=== PATIENT | female | born 1985 | race Caucasian/White ===

== ENCOUNTER 2016-10-18 20:20 | Emergency (ER) | payer SELFPAY ==
[~2016-10-18] VITALS: Wt 54.2 kg
[2016-10-18] MEDS ORDERED: KETOROLAC 15 MG INJ IM STA (21:15)
[2016-10-18] MEDS ORDERED: ONDANSETRON (ODT) 4 MG TAB ODT STA (21:15)
[2016-10-18 22:15] LABS: ADD UMIC NO; URINE BILIRUBIN (Dip) NEGATIVE (NEGATIVE); URINE BLOOD (Dip) NEGATIVE (NEGATIVE); URINE COLOR LT. YELLOW (YELLOW); URINE GLUCOSE (Dip) NEGATIVE (NEGATIVE); URINE KETONES (Dip) NEGATIVE (NEGATIVE); URINE LEUKOCYTE ESTERASE (Dip) NEGATIVE (NEGATIVE); URINE NITRITE (Dip) NEGATIVE (NEGATIVE); URINE TOTAL PROTEIN (Dip) NEGATIVE (NEGATIVE); URINE UROBILINOGEN (Dip) 0.2 E.U./dL (0.1-1.0)
--- NOTE | 2016-10-18 22:21 | RADRPT ---
PROCEDURE: US Pelvis CLINICAL INDICATION: Pelvic pain. TECHNIQUE: Sonographic evaluation of the pelvis was performed utilizing both transabdominal and tr ansvaginal technique. Curved array transabdominal transducer technique as well as a high frequency endovaginal probe was utilized. Images were reviewed on the high-resolution PACS workstation. COMPARISON: No prior studies are available for comparison. FINDINGS: The uterus is normal in size, echogenicity, and morphology, measuring 7.5 x 4.2 x 5.2 cm. The uterus is anteverted in normal position. The endometrium measures 10 mm in thickness. The normal trilaminar stripe of the endometrium is preserved. The right ovary measures 2.0 x 1.8 x 1.6 cm. The left ovary measures 3.9 x 2.1 x 2.5 cm. The ovaries are symmetric in size, echogenicity, and morphology. Bilateral ovarian follicles are noted, measuring up to 1.6 cm. There are no adnexal masses. There is no significant free fluid in the pelvis. IMPRESSION: 1. Unremarkable ultrasound of the pelvis. RPTAT: HLDM .Joanh Jasso MD, Date Time Electronically viewed and signed by .Jonah Jasso MD, MD on 10/18/2016 22:21 .M/
[2016-10-18] MEDS ORDERED: KETOROLAC 15 MG INJ IV STA (23:56)
[2016-10-19] MEDS ORDERED: PANTOPRAZOLE 40 MG INJ IV ONE
[2016-10-19] MEDS ORDERED: SOD CHLORIDE 0.9% 500 ML IV ONE
--- NOTE | 2016-10-19 02:00 | ERD ---
ER Documentation Chief Complaint Date/Time DATE: 10/19/16 TIME: 01:48 Chief Complaint RIGHT SIDE AP FOR THE PAST FEW DAYS. NAUSEA NO VOMITING. NO DYSURIA HPI This pleasant 30-year-old female reporting right abdominal pain intermittently for a few days. Patient reports that symptoms have worsened today, states that she feels hungry but vomits after eating. Denies diarrhea, history of ovarian cyst on right side. Patient reports symptoms feel similar. Last menstrual period 2 months ago, patient reports irregular menstruation, denies fever, chills, vaginal discharge, denies diarrhea, constipation. Last bowel movement was this morning. ROS All systems reviewed and are negative except as per history of present illness. Allergies Allergies: Uncoded Allergies: SULFA (Allergy, Unknown, 10/19/16) PMhx/Soc History of Surgery: Yes (OVARIAN CYSTECTOMY) Anesthesia Reaction: No Hx Neurological Disorder: No Hx Respiratory Disorders: No Hx Cardiac Disorders: No Hx Psychiatric Problems: No Hx Miscellaneous Medical Probl: No Hx Alcohol Use: No Hx Substance Use: No Hx Tobacco Use: No (QUIT) Smoking Status: Former smoker Physical Exam Vitals Vital Signs Date Time Temp Pulse Resp B/P Pulse Ox O2 Delivery O2 Flow Rate FiO2 10/18/16 20:25 98.3 81 20 142/78 99 Vitals stable, triage notes were reviewed Physical Exam Const: No acute distress Head: Atraumatic Eyes: Normal Conjunctiva, PERRLA, EOMI ENT: Normal External Ears, Nose and Mouth. Mucous membranes moist Neck: Resp: Chest rises and falls symmetrically, clear to auscultation bilaterally, no respiratory distress Cardio: Abd: Abdomen soft, tympanic to percussion, tender to palpation left upper and lower quadrant., No McBurney's point tenderness. No CVA tenderness no Dobson sign Skin: Back: No midline or flank tenderness Ext: Neur: Awake and alert Psych: Normal Mood and Affect Results 24 hrs Laboratory Tests Test 10/18/16 21:30 Urine Color LT. YELLOW Urine Clarity CLEAR Urine pH 6.0 Urine Specific [place] 1.010 Urine Ketones NEGATIVE Urine Nitrite NEGATIVE Urine Bilirubin NEGATIVE Urine Urobilinogen 0.2 E.U./dL Urine Leukocyte Esterase NEGATIVE Urine Hemoglobin NEGATIVE Urine Glucose NEGATIVE% Urine Total Protein NEGATIVE Current Medications Medications (Trade) Dose Ordered Sig/Zahra Route PRN Reason Start Time Stop Time Status Last Admin Dose Admin Ketorolac Tromethamine (Toradol) 15 mg ONCE STAT IM 10/18/16 21:15 10/18/16 21:19 DC 10/18/16 21:25 Ondansetron HCl 4 mg 4 mg ONCE STAT ODT 10/18/16 21:15 10/18/16 21:19 DC 10/18/16 21:25 Sodium Chloride (NS) 500 ml @ 500 mls/hr Q1H ONCE IV 10/19/16 00:00 10/19/16 00:59 DC 10/19/16 00:29 Ketorolac Tromethamine (Toradol) 15 mg ONCE STAT IV 10/18/16 23:56 10/19/16 00:26 DC 10/19/16 00:29 Pantoprazole (Protonix Iv) 40 mg ONCE ONCE IV 10/19/16 00:00 10/19/16 00:26 DC 10/19/16 00:29 Procedures/MDM This pleasant 30-year-old female presents to the emergency department today with right-sided abdominal pain. Pain has been present for several days but worsened today. Patient has been unable to tolerate food without vomiting, states she feels hungry, denies diarrhea, patient has history of ovarian cyst reports symptoms feel similar. Patient's last menstrual period was 2 months ago. Patient has irregular menses duration, denies . Differential diagnosis includes but not limited to appendicitis, pancreatitis, bowel obstruction, cholecystitis, ovarian cysts. Pelvic ultrasound impression unremarkable ultrasound of the pelvis, the right ovary measures 2.0 x 1.8 x 1.6 cm left ovary measures 3.9 x 2.1 x 2.5 cm. The ovaries are symmetric in size echogenic and morphology. Bilateral ovarian follicles are noted measuring up to 1.6 cm there are no adnexal masses there is no significant free fluid in pelvis. Patient receives 15 mg of Toradol intramuscularly, 4 mg of Zofran sublingual reassessed after 30 minutes with no change in symptoms. Patient given 500 mg of IV fluid, 15 mg of IV Toradol and 40 mg IV Protonix. Reassessed after 90 minutes reports improvement of symptoms, feels more hydrated , patient will be discharged home with Zantac 150 mg twice daily as needed, and Zofran, patient instructed to adhere to clear liquid diet advance as tolerated, return to emergency room for worsening of symptoms, and unable to tolerate fluids, fever, worsening of nausea not responding to medication. I feel the patient is stable for discharge at this time and outpatient management by primary care physician. I have discussed results, examination findings, the treatment plan with the patient and family present prior to discharge. Indications for emergent reevaluation, side effects of medication were also discussed. All questions were answered. Patient verbalizes understanding and agrees with plan of care. Departure Diagnosis: Primary Impression: Abdominal pain Abdominal location: right upper quadrant Qualified Code: R10.11 - Right upper quadrant abdominal pain Condition: Good Patient Instructions: Abdominal Pain Additional Instructions: Thank you for for coming to [facility] for your care today. Please ask your nurse or provider if you have questions about your care today and do not leave until all your questions have been answered. Please use any medications given as directed and follow-up with your doctor (or the doctor you were referred to) in the next 2-3 days. If you do not have a primary care doctor you may follow up [place] the [facility] [place] (listed [place]). You may also use motrin and tylenol as needed for fever and/or pain unless instructed otherwise by your provider or nurse. Indications for more urgent follow-up have been discussed, but you may return to the Emergency Department at ANY time for any worrisome or worsening symptoms. If you have abdominal pain, please know that no test or exam you received is perfect and you should follow up within 8 hours for continued pain. If you had any imaging studies today, such as an X-Ray or CT Scan, these studies will be reviewed later by a radiologist. You will be called if there are important findings that were not identified today, so make sure the contact information you provided at registration is correct. If you received any narcotic pain control medicine today, such as Vicodin, Morphine or Dilaudid, your coordination and judgment may be affected for a number of hours. Please do not drive or operate heavy machinery, and you may want someone to assist you at home. If you were given a prescription for narcotic medication, be aware that it is very addictive- use sparingly and only if necessary. VIET ORTIZ October 19, 2016 02:00
[2016-10-19] MEDS ORDERED: RANI150T9 PO (02:01)
[2016-10-19] MEDS ORDERED: ONDA4TAB14 PO (02:01)
[2016-10-19 02:14] VITALS: BP 128/78; PULSE 78; RESP 20; TEMP 98.2
== END 2016-10-19 02:15 | disposition home or self-care (01) ==
LOC: FTE 20:20
DX: R10.11 Right upper quadrant pain (principal); R11.0 Nausea; Z87.891 Personal history of nicotine dependence
CPT/HCPCS: 76856; 81003; C9113; J1885; J7040; 96372; 96374; 96375